=== PATIENT | male | born 1955 | race Two or more races ===

== ENCOUNTER 2025-02-25 10:30 | Inpatient (IN) | payer OTHER ==
[~2025-02-25] VITALS: Ht 162.6 cm; Wt 77.1 kg
[2025-02-25] MEDS ORDERED: ZESTRIL20 MG PO (13:06)
[2025-02-25 16:57] LABS: INR 1.15
[2025-03-04] MEDS ORDERED: METRONIDAZOLE/SODIUM CHLORIDE 500 MG/100 ML PIGGYBACK IV ONE ×2 (07:30→13:15)
[2025-03-04] MEDS ORDERED: CEFTRIAXONE SODIUM 2,000 MG VIAL ONE (07:30)
[2025-03-04] MEDS ORDERED: CEFTRIAXONE SODIUM 2,000 MG VIAL IV ONE (13:15)
[2025-03-04] MEDS ORDERED: ENALAPRILAT DIHYDRATE 1.25 MG/ML VIAL IV PRN (14:00)
[2025-03-04] MEDS ORDERED: MORPHINE SULFATE 4 MG/ML VIAL IV ONE ×2 (14:50→15:50)
[2025-03-04] MEDS ORDERED: DEXTROSE 50 % IN WATER 0.5 G/ML VIAL IV PRN (16:45)
[2025-03-04] MEDS ORDERED: RINGERS SOLUTION,LACTATED 1,000 ML IV SCH (16:45)
[2025-03-04] MEDS ORDERED: OxyCODONE HCL 5 MG TABLET (ROXICODONE) PO PRN (16:45)
[2025-03-04] MEDS ORDERED: ONDANSETRON HCL 2 MG/ML VIAL IV PRN (16:45)
[2025-03-04] MEDS ORDERED: MORPHINE SULFATE 4 MG/ML CARTRIDGE IV PRN (16:45)
[2025-03-04] MEDS ORDERED: GABAPENTIN 300 MG CAPSULE PO SCH (17:00)
[2025-03-04] MEDS ORDERED: POLYETHYLENE GLYCOL 3350 17 GM BLIST.PACK PO SCH (17:00)
[2025-03-04] MEDS ORDERED: HYOSCYAMINE SULFATE 0.125 MG TAB.SUBL SL SCH (17:00)
[2025-03-04 19:05] VITALS: BP 159/80; O2SAT 95
[2025-03-04 19:24] LABS: BASO % 0.2 % (0.1-1.2); EOS # 0.00 (0.04-0.54); EOS % 0.0 % (0.7-7.0); LYMPH # 0.82 (1.18-3.74); LYMPH % 5.9 % (19.3-53.1); MEAN PLATELET VOLUME 9.90 fl (9.4-12.4); MONO # 0.86 (0.24-0.82); MONO % 6.2 % (4.7-12.5); NEUT # 12.21 (1.56-6.13); NEUT % 87.4 % (34.0-71.1); RED CELL DISTRIBUTION WIDTH 13.2 % (11.6-14.4)
[2025-03-04 19:47] LABS: BUN CREA RATIO 11.0 (7.0-25.0); CREATININE SERUM 1.0 mg/dL (0.70-1.30); GFR 74.09; GLUCOSE FASTING 125.0 mg/dL (65-100); OSMOLALITY SERUM 282.0 MOSM/KG (275-295)
[2025-03-04] MEDS ORDERED: ACETAMINOPHEN 500 MG GEL..CAP PO SCH (20:00)
[2025-03-04] MEDS ORDERED: FAMOTIDINE/PF 20 MG/2 ML VIAL IV PUSH SCH (21:00)
[2025-03-05 07:52] LABS: BASO % 0.3 % (0.1-1.2); EOS # 0.02 (0.04-0.54); EOS % 0.2 % (0.7-7.0); LYMPH # 1.71 (1.18-3.74); LYMPH % 17.5 % (19.3-53.1); MEAN PLATELET VOLUME 9.90 fl (9.4-12.4); MONO # 0.89 (0.24-0.82); MONO % 9.1 % (4.7-12.5); NEUT # 7.11 (1.56-6.13); NEUT % 72.7 % (34.0-71.1); RED CELL DISTRIBUTION WIDTH 13.2 % (11.6-14.4)
[2025-03-05 08:00] VITALS: BP 146/78; O2SAT 92
[2025-03-05 08:27] LABS: BUN CREA RATIO 11.0 (7.0-25.0); CREATININE SERUM 1.0 mg/dL (0.70-1.30); GFR 74.09; GLUCOSE FASTING 95.0 mg/dL (65-100); OSMOLALITY SERUM 282.0 MOSM/KG (275-295)
[2025-03-05] MEDS ORDERED: LISINOPRIL 20 MG TABLET PO SCH (09:00)
[2025-03-05] MEDS ORDERED: HYDROCHLOROTHIAZIDE 25 MG TABLET PO SCH (09:00)
[2025-03-05] MEDS ORDERED: MAGNESIUM SULFATE IN WATER 50 ML IV NR (12:00)
[2025-03-05 16:46] VITALS: BP 129/83; O2SAT 95
[2025-03-05] MEDS ORDERED: ENOXAPARIN SODIUM 40 MG/0.4 ML SYRINGE SUBCUTANEO SCH (17:00)
[2025-03-05] MEDS ORDERED: SIMVASTATIN 40 MG TABLET PO SCH (17:00)
[2025-03-06] VITALS: BP 102/69; O2SAT 95
[2025-03-06 07:01] LABS: BASO % 0.5 % (0.1-1.2); EOS # 0.20 (0.04-0.54); EOS % 1.9 % (0.7-7.0); LYMPH # 1.41 (1.18-3.74); LYMPH % 13.4 % (19.3-53.1); MEAN PLATELET VOLUME 9.70 fl (9.4-12.4); MONO # 0.96 (0.24-0.82); MONO % 9.1 % (4.7-12.5); NEUT # 7.89 (1.56-6.13); NEUT % 74.8 % (34.0-71.1); RED CELL DISTRIBUTION WIDTH 13.4 % (11.6-14.4)
[2025-03-06 07:46] LABS: BUN CREA RATIO 13.0 (7.0-25.0); CREATININE SERUM 1.08 mg/dL (0.70-1.30); GFR 67.79; GLUCOSE FASTING 106.0 mg/dL (65-100); OSMOLALITY SERUM 277.0 MOSM/KG (275-295)
[2025-03-06] MEDS ORDERED: ENOXAPARIN SODIUM 40 MG/0.4 ML SYRINGE SUBCUTANEO SCH (09:00)
[2025-03-06] MEDS ORDERED: POTASSIUM PHOS,M-BASIC-D-BASIC 15 MM in 0.9 % SODIUM CHLORIDE 250 ML IV ONE (10:00)
[2025-03-06 16:00] VITALS: BP 105/66; O2SAT 94
[2025-03-07 00:50] VITALS: BP 116/73; O2SAT 96
[2025-03-07 08:00] VITALS: BP 121/76; O2SAT 95
[2025-03-07] MEDS ORDERED: TYLENOL ARTHRI650 MG PO (13:23)
[2025-03-07] MEDS ORDERED: PRILOSEC OTC20 MG PO (13:23)
[2025-03-07] MEDS ORDERED: NEURONTIN300 MG PO (13:23)
[2025-03-07] MEDS ORDERED: INTESTINEX680 M1 PO (13:23)
== END 2025-03-07 14:38 | disposition home or self-care (01) | DRG 331 ==
LOC: SURH 03-04 07:00 → O/R 03-04 07:55 → SURH 03-04 10:30 → SURG 03-04 15:59
PROVIDERS: Internal Medicine Geriatric Medicine; ADMIT Surgery; ATTEND Surgery
PROC: 07BC4ZZ Excision of Pelvis Lymphatic, Percutaneous Endoscopic Approach (ICD-10-PCS; 2025-03-04)
PROC: 0DTF4ZZ Resection of Right Large Intestine, Percutaneous Endoscopic Approach (ICD-10-PCS; principal; 2025-03-04 07:00)
DX: D12.2 Benign neoplasm of ascending colon (principal); R59.0 Localized enlarged lymph nodes; D37.5 Neoplasm of uncertain behavior of rectum